=== PATIENT | male | born 1935 | race Caucasian/White ===

== ENCOUNTER 2017-05-15 05:58 | Observation (INO) ==
--- NOTE | 2017-05-15 06:25 | Emergency Department Note ---
Disposition Clinical Impression: Chest pain Disposition: Admitted As Inpatient Condition: Fair Referrals: Phi Wheeler MD [Primary Care Provider] - Forms: ED Satisfaction Letter Time of Disposition: 07:16 ( shawn obsmanuel) Chest Pain HPI - General Chief Complaint: ED Chest Pain Stated Complaint: CHEST PAIN NOW RESOLVED Time Seen by Provider: 05/15/17 06:05 Source: patient, EMS Mode of arrival: ambulatory Limitations: other Vital Signs Reviewed: Yes Nursing Notes Reviewed: Yes - History of Present Illness HPI Narrative: Patient awoke with right-sided chest pain just prior to arrival patient took nitroglycerin at home was completely resolved at this time he denies nausea vomiting or diaphoresis denies any rashes or lesions denies diarrhea melena hematochezia hematemesis numbness tingling this recent weight gain or weight loss denies previous episode of chest pain Pt complaint: chest pain Onset (ago): Just [employer] Duration: constant Onset: awoke with symptoms Pain Location: right chest Severity: mild Severity scale (1-10): 0 Quality: tightness Improves with: nitroglycerin Worsens with: nothing Associated symptoms: Denies: nausea, vomiting, diaphoresis, dyspnea, sense of impending doom, syncope, palpitations, fever, cough, leg swelling Treatments prior to arrival chest pain: aspirin - Related Data Home Medications Medication Instructions Recorded Confirmed Acetaminophen [Tylenol] 650 mg PO BID 07/04/15 05/12/17 Ammonium Lactate 400 gm TP BID 07/04/15 05/12/17 Aspirin 81 mg PO DAILY 07/04/15 05/12/17 Calcium Citrate/Vitamin D3 [Calcet 1 each PO BID 07/04/15 05/12/17 Citrate Creamy Bites] Clopidogrel [Plavix] 75 mg PO DAILY 07/04/15 05/12/17 LORazepam [Ativan] 0.5 mg PO TID PRN 07/04/15 05/12/17 Ranolazine [Ranexa] 500 mg PO BID 07/04/15 05/12/17 Rosuvastatin [Crestor] 20 mg PO HS 07/04/15 05/12/17 Polyethylene Glycol 3350 [MiraLAX] 17 gm PO DAILY 08/21/15 05/12/17 Nitroglycerin [Nitrostat] 0.4 mg SL PRN PRN 03/04/16 05/12/17 Tramadol HCl/Acetaminophen 1 each PO PRN PRN 03/04/16 05/12/17 [Ultracet Tablet] Cyanocobalamin (Vitamin B-12) 1,000 mcg PO 3XW 05/12/17 05/12/17 [Vitamin B-12] Loratadine [Allergy Relief] 10 mg PO DAILY 05/12/17 05/12/17 amLODIPine [Norvasc] 2.5 mg PO DAILY PRN 05/12/17 05/12/17 Previous Rx's Medication Instructions Recorded Albuterol Sulfate [Albuterol 2 puff IH QID #1 inhaler 12/10/16 Inhaler] Allergies Allergy/AdvReac Type Severity Reaction Status Date / Time aspartame Allergy Hives Verified 05/15/17 06:25 codeine Allergy Hives Verified 05/15/17 06:25 fish oil Allergy Hives Verified 05/15/17 06:25 hydrocodone [From Vicodin] Allergy Hives Verified 05/15/17 06:25 lidocaine [From Xylocaine] Allergy Hives Verified 05/15/17 06:25 niacin Allergy Hives Verified 05/15/17 06:25 [From Niaspan Extended-Release] phenobarbital Allergy Hives Verified 05/15/17 06:25 prednisone Allergy Hives Verified 05/15/17 06:25 pregabalin [From Lyrica] Allergy Hives Verified 05/15/17 06:25 quinine Allergy Hives Verified 05/15/17 06:25 HYCO CLEAR TUSS COUGH SYRUP Allergy Hives Uncoded 05/15/17 06:25 all nuts AdvReac See Uncoded 05/15/17 06:25 Comments dairy products AdvReac See Uncoded 05/15/17 06:25 Comments All systems ED: reviewed and negative except as stated. Constitutional: Denies: fever, chills, weakness Eyes: Denies: eye pain, eye discharge ENT ED: Denies: ear pain Cardiovascular: Reports: chest pain. Denies: palpitations, syncope Respiratory: Denies: cough, dyspnea Gastrointestinal: Denies: abdominal pain, nausea, vomiting Genitourinary: Denies: urgency, dysuria Musculoskeletal: Denies: back pain Integumentary: Denies: abrasion Neurological: Denies: headache Psychiatric: Denies: anxiety Endocrine: Denies: heat or cold intolerance Hematological/Lymphatic: Denies: easy bleeding Allergic/Immunologic: Denies: facial swelling Chest Pain PMH - Past Medical History Medical history: Reports: arthritis, COPD, coronary artery disease, hypertension , migraine, myocardial infarction, other Surgical history: Reports: angioplasty/stent, cancer surgery (Excision of basal cell), cataract, coronary bypass (CABG) (1990), herniorrhaphy, orthopedic, other (Carpal tunnel and sore.), other (Tonsillectomy) Psychiatric history: Reports: no psych history - Social History Smoking Status: Never smoker Alcohol use: Reports: none Drug use: Reports: none Physical Exam - General Limitations: other ([place]) General appearance: alert, in no apparent distress - Head Head exam: atraumatic, normocephalic, normal inspection - Eye Eye exam: Present: normal appearance, PERRL, EOMI - ENT ENT exam: normal exam, normal oropharynx, mucous membranes moist, TM's normal bilaterally, normal external ear exam - Neck Neck exam: Present: normal inspection, full ROM, trachea midline - Chest Chest inspection: Present: normal inspection, symmetric chest wall rise - Respiratory Respiratory exam: Present: normal lung sounds bilaterally - Cardiovascular Cardiovascular exam: Present: regular rate, normal rhythm, normal heart sounds - Abdominal Exam Abdominal exam: Present: soft, Non-Tender, normal bowel sounds. Absent: mass, pulsatile mass - Extremities Exam Extremities exam: Present: normal inspection, full ROM, normal capillary refill. Absent: tenderness, joint swelling - Expanded Lower Extremity Exam Neurovascular/Tendon exam: Present: normal capillary refill, normal fine/light touch Gait: observed and normal - Back Exam Back exam: Present: normal inspection, full ROM, muscle spasm - Neurological Exam Neurological exam: Present: alert, oriented X3, CN II-XII intact, normal gait - Psychiatric Psychiatric exam: Present: normal affect, normal mood - Skin Skin exam: Present: warm, dry, intact, normal color Course Course Narrative: Patient currently asymptomatic at this time patient resting comfortably EKG and labs done awaiting laboratory results Vital Signs Temperature 98.3 F 05/15/17 06:01 Pulse Rate 68 05/15/17 06:01 Respiratory Rate 18 05/15/17 06:01 Blood Pressure 193/106 05/15/17 06:01 O2 Sat by Pulse Oximetry 96 05/15/17 06:01 Temperature 98.3 F 05/15/17 06:01 Pulse Rate 68 05/15/17 06:01 Respiratory Rate 18 05/15/17 06:01 Blood Pressure 193/106 05/15/17 06:01 O2 Sat by Pulse Oximetry 96 05/15/17 06:01 Oxygen Delivery Oxygen Delivery Room Air Chest Pain - Differential Diagnosis Likely: chest pain - Medical Records Medical records reviewed: Yes I reviewed the patient's medical records. - Lab Data Lab results reviewed: Yes I reviewed the patient's lab results. - Radiology Data Radiology results reviewed: Yes I reviewed the patient's radiology results. ITS Impressions Chest X-Ray 05/15/17 06:14 IMPRESSION: Stable exam without acute focal process. D/ / Bala Vizcaino MD / Bala Vizcaino MD Interpreting Provider: Bala Vizcaino MD - EKG Data EKG attestation: Yes I reviewed and interpreted this EKG. EKG results narrative: EKG shows rate is 60 6PR appears to be buried P wave which could be consistent with atrial fib QRS 135 QTc 413 axis [id number] Heart Score - Score History: Slightly Suspicious EKG: Normal Age: Greater than 65 Risk Factors: 1-2 risk factors Critical Care Time Critical Care Time: No
[2017-05-15 06:33] LABS: Basophils % 0.7 %; Eosinophils # 0.2 K/mcL (0.0-0.6); Eosinophils % 5.6 %; Hematocrit 37.7 % (37.5-50.1); Hemoglobin 12.5 g/dL (12.9-16.9); Immature Granulocytes % 0.2 % (0-4); Lymphocytes # 1.1 K/mcL (0.6-4.6); Lymphocytes % 26.3 %; Mean Corpuscular HGB Conc 33.2 g/dL (31.6-35.5); Mean Corpuscular Volume 99.5 fL (83.0-100.0); Mean Platelet Volume 11.1 fL (9.4-12.4); Monocytes # 0.4 K/mcL (0.0-1.3); Monocytes % 10.6 %; Neutrophils # 2.3 K/mcL (1.6-8.9); Platelet Count 115 K/mcL (140-400); Red Blood Count 3.79 M/mcL (4.19-5.50); Red Cell Distribution Width 13.5 % (11.5-14.5); Segmented Neutrophils % 56.6 %
[2017-05-15 06:35] LABS: Prothrombin Time 11.2 Seconds (9.4-12.1)
[2017-05-15 06:36] LABS: Bilirubin,Urine Negative (Negative); Blood,Urine Trace-intact (Negative); Clarity,Urine Clear (Clear); Color,Urine Yellow (Yellow); Glucose,Urine (UA) Normal (Normal); Ketones,Urine Negative (Negative); Leukocyte Esterase,Urine Negative (Negative); Nitrite,Urine Negative (Negative); Protein,Urine Negative (Neg-Trace); Specific Gravity,Urine 1.015 (1.010-1.025); Urobilinogen,Urine Normal (Normal)
[2017-05-15 06:38] LABS: Activated Partial Thrombo Time 31.1 Seconds (26.0-36.0)
[2017-05-15 06:57] LABS: BUN/Creatinine Ratio 31 (6-26); Blood Urea Nitrogen 41 mg/dL (8-26); Carbon Dioxide 24 mEq/L (19-29); Chloride 109 mEq/L (98-109); Glucose 108 mg/dL (70-99); Osmolality,Calculated 307 (280-300); Potassium 4.4 mEq/L (3.5-4.5); Sodium 143 mEq/L (136-145); eGFR For African Americans > 60 (> 60); eGFR For Non-African Americans 53 (> 60)
[2017-05-15 07:05] LABS: RBC,Urine 0-3 per hpf (0-3); Squamous Epithelial Cell,Urine Few per lpf (None-Few)
[2017-05-15] MEDS ORDERED: amLODIPine 5 MG TABLET PO PRN (07:52)
[2017-05-15] MEDS ORDERED: Nitroglycerin 0.4 MG TAB.SUBL SL PRN (07:52)
[2017-05-15] MEDS ORDERED: Naloxone 0.4 MG/ML INJ IVP PRN (07:52)
[2017-05-15] MEDS ORDERED: [UNRECOGNIZED DRUG - OTHER] PO PRN (07:52)
[2017-05-15] MEDS ORDERED: *HR* LORazepam 0.5 MG TABLET PO PRN (07:52)
[2017-05-15] MEDS ORDERED: TRAMADOL HCL PO PRN (07:52)
[2017-05-15] MEDS ORDERED: ACETAMINOPHEN PO PRN (07:52)
[2017-05-15 08:02] VITALS: BP 156/86
[2017-05-15] MEDS ORDERED: Ranolazine 500 MG TAB.ER.12H PO SCH (09:00)
[2017-05-15] MEDS ORDERED: [UNRECOGNIZED DRUG - OTHER] PO SCH (09:00)
[2017-05-15] MEDS ORDERED: Ammonium Lactate 30 APPL/225 GM BOTTLE TP SCH (09:00)
[2017-05-15] MEDS ORDERED: Loratadine 10 MG TABLET PO SCH (09:00)
[2017-05-15] MEDS ORDERED: VITAMIN D3 PO SCH (09:00)
[2017-05-15] MEDS ORDERED: Aspirin 81 MG TAB.CHEW PO SCH (09:00)
[2017-05-15] MEDS ORDERED: Acetaminophen 325 MG TABLET PO SCH (09:00)
[2017-05-15] MEDS ORDERED: CALCIUM CITRATE PO SCH (09:00)
[2017-05-15] MEDS ORDERED: Cholecalciferol (D-3) 1,000 UNIT TABLET PO SCH (14:45)
[2017-05-15] MEDS ORDERED: traMADol 50 MG TABLET PO PRN (14:45)
[2017-05-15] MEDS ORDERED: Acetaminophen 325 MG TABLET PO PRN (14:46)
--- NOTE | 2017-05-15 17:14 | Internal Med History&Physical ---
Date of Encounter: 05/15/17 Time of Encounter: 16:30 Assessment and Plan (1) Chest pain Current visit: Yes Status: Acute Now resolved. Etiology is not certain but seems unlikely to be myocardial ischemic from fixed stenosis based on his ability to do significant exercise without angina. Repeat cardiac enzymes were ordered through emergency room. Qualifiers: Chest pain type: unspecified Qualified Code(s): R07.9 - Chest pain, unspecified (2) Atrial fibrillation and flutter Current visit: Yes Status: Acute Finding on ER EKG. Duration unknown. He is now back in normal sinus rhythm. (3) CKD (chronic kidney disease) stage 3, GFR 30-59 ml/min Current visit: Yes Status: Chronic Creatinine was 1.21 on 04/02/2017. (4) Anemia Current visit: Yes Status: Acute Suspect multifactorial etiology including chronic kidney disease and use of antiplatelet agents. Qualifiers: Anemia type: unspecified type Qualified Code(s): D64.9 - Anemia, unspecified Internal Medicine - H&P: HPI Chief complaint: Chest pain and elevated blood pressure Admitted From: Home Plans for Post Hospital Care: Home History of present illness: Mr. Lou is a 81 year old male who states he had chest pain on awakening today. He describes it as a right sided sharp pain. He took a nitroglycerin pill with relief of the pain. His blood pressure was approximately 220/105. He decided to come to emergency room. He was admitted to [facility] for ongoing care needs. He denies previous similar chest pain. He does not get angina or anginal equivalents on a routine activities of daily living or on exertional activities including riding a stationary bike for 25 minutes at the [facility]. He has known ASHD status post [place] February 1990. He had 4 vessel CABG surgery December 1990 at [facility]. He had coronary stents placed August 2007, July 2009, April 2014 (2 stents), and February 2015 which was his last heart cath. He has occasional PVCs. His blood pressure is generally well controlled and does not require use of the prn Norvasc he has available. He has not used a nitroglycerin pill for several years prior to today. He denies DVT or pulmonary embolus. He has not had documented atrial fibrillation in the past. He states he feels back to his baseline now and wishes to be discharged. Past Med Surg Social Fam HX - Past Medical History Medical history: arthritis, COPD, coronary artery disease, hypertension, migraine, myocardial infarction, other Psychiatric history: no psych history - Past Surgical History Surgical History: angioplasty/stent, cancer surgery, cataract, coronary bypass ( CABG), herniorrhaphy, orthopedic, other, other - Social History Smoking Status: Never smoker Smokeless Tobacco Status: No Alcohol use: none Drug use: none Internal Medicine - H&P: Meds Acetaminophen [Tylenol] 650 mg PO BID 07/04/15 [History] Ammonium Lactate 400 gm TP BID 07/04/15 [History] Aspirin 81 mg PO DAILY 07/04/15 [History] Calcium Citrate/Vitamin D3 [Calcet Citrate Creamy Bites] 1 each PO BID 07/04/15 [History] Clopidogrel [Plavix] 75 mg PO DAILY 07/04/15 [History] LORazepam [Ativan] 0.5 mg PO TID PRN 07/04/15 [History] Ranolazine [Ranexa] 500 mg PO BID 07/04/15 [History] Rosuvastatin [Crestor] 20 mg PO HS 07/04/15 [History] Polyethylene Glycol 3350 [MiraLAX] 17 gm PO DAILY 08/21/15 [History] Nitroglycerin [Nitrostat] 0.4 mg SL PRN PRN 03/04/16 [History] Tramadol HCl/Acetaminophen [Ultracet Tablet] 1 each PO PRN PRN 03/04/16 [History ] Albuterol Sulfate [Albuterol Inhaler] 2 puff IH QID #1 inhaler 12/10/16 [Rx] Cyanocobalamin (Vitamin B-12) [Vitamin B-12] 1,000 mcg PO 3XW 05/12/17 [History] Loratadine [Allergy Relief] 10 mg PO DAILY 05/12/17 [History] amLODIPine [Norvasc] 2.5 mg PO DAILY PRN 05/12/17 [History] Allergies aspartame Allergy (Verified 05/15/17 06:25) Hives codeine Allergy (Verified 05/15/17 06:25) Hives fish oil Allergy (Verified 05/15/17 06:25) Hives hydrocodone [From Vicodin] Allergy (Verified 05/15/17 06:25) Hives lidocaine [From Xylocaine] Allergy (Verified 05/15/17 06:25) Hives niacin [From Niaspan Extended-Release] Allergy (Verified 05/15/17 06:25) Hives phenobarbital Allergy (Verified 05/15/17 06:25) Hives prednisone Allergy (Verified 05/15/17 06:25) Hives pregabalin [From Lyrica] Allergy (Verified 05/15/17 06:25) Hives quinine Allergy (Verified 05/15/17 06:25) Hives HYCO CLEAR TUSS COUGH SYRUP Allergy (Uncoded 05/15/17 06:25) Hives all nuts Adverse Reaction (Uncoded 05/15/17 06:25) See Comments unknown, baker doughnut tests showed allery to. sts can still eat peanuts but only in small amounts dairy products Adverse Reaction (Uncoded 05/15/17 06:25) See Comments unknown, baker doughnut tests showed allergy but still eats ice cream All Systems PM: A 10-system review of systems was performed and is negative for pertinent findings except as documented above in the HPI. Review of systems: Gen.: His weight has been stable the past few months Cardiovascular: As per history of present illness Respiratory: He states he was recently diagnosed with "COPD" although he is a lifelong nonsmoker. He does not use home oxygen. GI: He has history of hiatal hernia. He denies disorders of his liver gallbladder or exocrine pancreas : He has chronic kidney disease stage III. Denies other kidney bladder prostate disorders Neurologic: He had a TIA several years ago without recurrence. He denies large distribution strokes or seizures. Endocrine: He denies diabetes thyroid disease or hyperlipidemia. He takes Crestor because of known severe coronary artery disease. Hematology/oncology: He has thrombocytopenia and is following with an oncologist. 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 - Constitutional Vitals: Temp Pulse Resp BP Pulse Ox 98.3 F 59 14 156/86 97 05/15/17 08:00 05/15/17 07:30 05/15/17 10:31 05/15/17 08:00 05/15/17 10:31 Exam: Gen.: He is a well-developed well-nourished male who appears in no severe distress at present time. HEENT: Head is atraumatic and normal cephalic. Eyes: EOMI. There is no scleral icterus. Mouth: Mucosa is moist. Neck: Supple and nontender. There is no thyromegaly or adenopathy noted. Heart: Regular without murmurs or gallops. There is an occasional ectopic beat. Lungs: No wheezes or crackles are heard. Abdomen: Soft and nontender. No masses or guarding noted. 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 He has DJD changes of his hands. He has some deformity of his feet which he states is due to Angie Danlos syndrome. There is no cyanosis edema or clubbing noted. Dorsalis pedis and posterior tibial pulses are trace palpable bilaterally. Neurologic: Mental status: He is talkative and a good historian. He is wearing hearing aids bilaterally. Cranial nerves: Smile is symmetric. Forehead wrinkles bilaterally. Tongue protrudes midline. EOMI. Motor: There is no pronator drift. Cerebellar: Finger to nose is intact bilaterally. Skin: Warm and dry. He has ecchymosis of various stages on his arms. Internal Med - H&P Results - Labs CBC & Chem 7: 05/15/17 06:25 05/15/17 06:25 Labs: Cardiac Enzymes 05/15/17 Range/Units 12:02 Troponin I 0.01 (0-0.03) ng/mL
--- NOTE | 2017-05-15 17:32 | Discharge Summary ---
Date of Encounter: 05/15/17 Time of Encounter: 16:30 - Discharge Diagnosis (1) Chest pain Priority: Primary Status: Resolved Qualifiers: Chest pain type: unspecified Qualified Code(s): R07.9 - Chest pain, unspecified (2) Atrial fibrillation and flutter Priority: Secondary Status: Acute (3) CKD (chronic kidney disease) stage 3, GFR 30-59 ml/min Priority: Secondary Status: Chronic (4) Anemia Priority: Secondary Status: Acute Qualifiers: Anemia type: unspecified type Qualified Code(s): D64.9 - Anemia, unspecified - Discharge Medications Home Medications: Acetaminophen [Tylenol] 650 mg PO BID 07/04/15 [History] Ammonium Lactate 400 gm TP BID 07/04/15 [History] Aspirin 81 mg PO DAILY 07/04/15 [History] Calcium Citrate/Vitamin D3 [Calcet Citrate Creamy Bites] 1 each PO BID 07/04/15 [History] Clopidogrel [Plavix] 75 mg PO DAILY 07/04/15 [History] LORazepam [Ativan] 0.5 mg PO TID PRN 07/04/15 [History] Ranolazine [Ranexa] 500 mg PO BID 07/04/15 [History] Rosuvastatin [Crestor] 20 mg PO HS 07/04/15 [History] Polyethylene Glycol 3350 [MiraLAX] 17 gm PO DAILY 08/21/15 [History] Nitroglycerin [Nitrostat] 0.4 mg SL PRN PRN 03/04/16 [History] Tramadol HCl/Acetaminophen [Ultracet Tablet] 1 each PO PRN PRN 03/04/16 [History ] Albuterol Sulfate [Albuterol Inhaler] 2 puff IH QID #1 inhaler 12/10/16 [Rx] Cyanocobalamin (Vitamin B-12) [Vitamin B-12] 1,000 mcg PO 3XW 05/12/17 [History] Loratadine [Allergy Relief] 10 mg PO DAILY 05/12/17 [History] amLODIPine [Norvasc] 2.5 mg PO DAILY PRN 05/12/17 [History] Allergies/Adverse Reactions: Allergies aspartame Allergy (Verified 05/15/17 06:25) Hives codeine Allergy (Verified 05/15/17 06:25) Hives fish oil Allergy (Verified 05/15/17 06:25) Hives hydrocodone [From Vicodin] Allergy (Verified 05/15/17 06:25) Hives lidocaine [From Xylocaine] Allergy (Verified 05/15/17 06:25) Hives niacin [From Niaspan Extended-Release] Allergy (Verified 05/15/17 06:25) Hives phenobarbital Allergy (Verified 05/15/17 06:25) Hives prednisone Allergy (Verified 05/15/17 06:25) Hives pregabalin [From Lyrica] Allergy (Verified 05/15/17 06:25) Hives quinine Allergy (Verified 05/15/17 06:25) Hives HYCO CLEAR TUSS COUGH SYRUP Allergy (Uncoded 05/15/17 06:25) Hives all nuts Adverse Reaction (Uncoded 05/15/17 06:25) See Comments unknown, candy counter clerk tests showed allery to. sts can still eat peanuts but only in small amounts dairy products Adverse Reaction (Uncoded 05/15/17 06:25) See Comments unknown, candy counter clerk tests showed allergy but still eats ice cream Date of admission: 05/15/17 07:41 Primary care physician: Phi Wheeler MD - Patient Status Disposition: Home, Self-Care Condition: Fair Functional capacity at discharge: independent ambulation Overall status at discharge: patient is progressing back to baseline - Discharge Instructions Follow Up With: Phi Wheeler MD [Primary Care Provider] - 1 week - Diet and Activity Activity: resume usual activities as tolerated Diet: advance to your usual diet Hospital course: Mr. Lou is a 81 year old male who states he had chest pain on awakening today. He describes it as a right sided sharp pain. He took a nitroglycerin pill with relief of the pain. His blood pressure was approximately 220/105. He decided to come to emergency room. He was admitted to [facility] for ongoing care needs. Initial orders were written by the emergency room physician. I saw him on the afternoon of May 15 and performed the history, physical and discharge. Repeat cardiac enzymes showed no evidence of myocardial damage. When I saw him his pain had remained resolved and he felt back to his baseline. Etiology of the pain was not determined with certainty. He had atrial fibrillation seen on emergency room EKG. The duration of this was not known. By the time I saw him he had converted back to normal sinus rhythm with occasional PVCs which were asymptomatic. I told him he should make an ointment with his gasket maker to discuss further intervention for the atrial fibrillation. He wished to be discharged home which I felt was reasonable. He will follow with his PCP within one week. He will follow with his gasket maker as soon as an appointment can be made. I gave him a copy of his emergency room EKG to take to his gasket maker. - Time Spent with Patient Total time spent providing and/or coordinating discharge services: - Constitutional Vitals: Temp Pulse Resp BP Pulse Ox 98.3 F 59 14 156/86 97 05/15/17 08:00 05/15/17 07:30 05/15/17 10:31 05/15/17 08:00 05/15/17 10:31
[2017-05-17] MEDS ORDERED: Cyanocobalamin (B-12) 1,000 MCG TABLET PO SCH (09:00)
--- NOTE | 2017-05-17 16:33 | Electrocardiograph Report ---
[address] [place], [place] [address] Test Date: 2017-05-15 Pat Name: Trent Lou Department: [id number] Room: [facility] Gender: M Fiscal Assistant: Luis Carlos : 1935 Requested By: Roro Orona Order Number: [id number] Reading MD: Slava Harmon MD Measurements Intervals [place] Rate: 66 P: [place]: 0 QRS: 77 QRSD: 135 T: 45 QT: 413 QTc: 426 Interpretive Statements ATRIAL fibrillation Electronically Signed On 05-17-2017 16:32:02 EDT by Slava Harmon MD
== END 2017-05-15 18:04 | disposition home or self-care (01) ==
LOC: EMEROOPIK 05:58 → INPPIK 05:58
PROVIDERS: ADMIT Internal Medicine; ATTEND Internal Medicine